=== PATIENT | male | born 1990 | race African-American/Black ===

== ENCOUNTER 2017-04-11 21:06 | Emergency (ER) | payer SELFPAY ==
[~2017-04-11] VITALS: Ht 175.3 cm; Wt 77.0 kg
[2017-04-11] MEDS ORDERED: ALBU8HFA IH (21:09)
[2017-04-11] MEDS ORDERED: GuaiFENesin/D-METHORPHAN [SUGAR-FREE] 200-20MG/10 ML SYRUP UDCUP PO ONE (22:30)
[2017-04-11] MEDS ORDERED: ACETAMINOPHEN 500 MG TABLET PO ONE (22:30)
[2017-04-11] MEDS ORDERED: IBUPROFEN 600 MG TABLET PO ONE (22:30)
[2017-04-11] MEDS ORDERED: ALBUTEROL SULFATE HFA 90 MCG/PUFF 8 GM INHALER IH ONE (22:30)
[2017-04-11 23:31] VITALS: BP 125/68
== END 2017-04-11 23:32 | disposition home or self-care (01) ==
LOC: EMS 21:08
DX: R07.89 Other chest pain (principal); J40 Bronchitis, not specified as acute or chronic; J06.9 Acute upper respiratory infection, unspecified; J45.909 Unspecified asthma, uncomplicated; F17.200 Nicotine dependence, unspecified, uncomplicated
CPT/HCPCS: 93005; 94640; 99284; 99406; J3535